=== PATIENT | male | born 1950 | race Caucasian/White ===

== ENCOUNTER 2020-06-21 15:51 | Outpatient (REF) | payer MEDICARE, SELFPAY | END 2020-06-21 15:52 | disposition home or self-care (01) | LOC: HO.LAB 15:51 | PROVIDERS: PCP Internal Medicine; Visit Provider Internal Medicine | DX: Z20.828 Contact with and (suspected) exposure to other viral communicable diseases (principal) | CPT/HCPCS: 87635 ==

== ENCOUNTER 2020-07-30 10:38 | Outpatient (REF) | payer MEDICARE, SELFPAY | END 2020-07-30 10:39 | disposition home or self-care (01) | LOC: HO.HMGCLDS 10:38 | PROVIDERS: PCP Internal Medicine; Visit Provider Internal Medicine | DX: Z20.828 Contact with and (suspected) exposure to other viral communicable diseases (principal) | CPT/HCPCS: C9803; U0003 ==

== ENCOUNTER 2020-08-02 09:51 | Outpatient (REF) | payer MEDICARE, SELFPAY ==
--- NOTE | 2020-08-02 | XR_ITS ---
EXAMINATION: XR CHEST CLINICAL INFORMATION: Covid infection COMPARISON: None TECHNIQUE: 2 views of the chest were obtained. FINDINGS: The cardiac and mediastinal contours are stable. There are 2 round densities in the right lung measuring 1.5 cm over the right anterior fourth rib and measuring 3.5 cm over the right anterior fifth and sixth ribs probably representing infiltrates. The left lung is clear. There is no pleural effusion or pneumothorax. There are degenerative changes of the spine. XR/XR chest 2V IMPRESSION: Two round nodular opacities in the right lung probably representing infiltrates. Chest x-ray follow-up recommended.
== END 2020-08-02 09:52 | disposition home or self-care (01) ==
LOC: HO.HMGCX 09:51
PROVIDERS: PCP Internal Medicine; Visit Provider Internal Medicine
DX: U07.1 COVID-19 (principal)
CPT/HCPCS: 71046

== ENCOUNTER 2020-08-09 09:20 | Outpatient (REF) | payer MEDICARE, SELFPAY ==
--- NOTE | 2020-08-09 | XR_ITS ---
EXAMINATION: XR CHEST CLINICAL INFORMATION: Pneumonia left lower lobe COMPARISON: 08/02/2020 TECHNIQUE: 2 views of the chest were obtained. FINDINGS: Stable cardiac and mediastinal silhouette. There is persistent, but slightly improved airspace opacities in the right midlung and right lower lung. No focal consolidation in the left lung. No effusion, edema pneumothorax. XR/XR chest 2V IMPRESSION: Airspace opacities in the right midlung and right lower lung, slightly improved from previous. Follow-up chest x-ray is recommended until resolution.
== END 2020-08-09 09:21 | disposition home or self-care (01) ==
LOC: HO.HMGCX 09:20
PROVIDERS: PCP Internal Medicine; Visit Provider Internal Medicine
DX: U07.1 COVID-19 (principal); J18.9 Pneumonia, unspecified organism
CPT/HCPCS: 71046

== ENCOUNTER 2020-08-30 09:08 | Outpatient (REF) | payer MEDICARE, SELFPAY ==
--- NOTE | 2020-08-30 | XR_ITS ---
EXAMINATION: XR CHEST CLINICAL INFORMATION: Covid positive COMPARISON: Previous chest x-rays from July 2020 TECHNIQUE: 2 views of the chest were obtained. FINDINGS: The cardiac and mediastinal contours are normal. The lungs are clear. The previously identified right-sided infiltrates are no longer seen. There is no pleural effusion or pneumothorax. There are degenerative changes of the spine. XR/XR chest 2V IMPRESSION: No evidence for acute disease in the chest.
== END 2020-08-30 09:09 | disposition home or self-care (01) ==
LOC: HO.HMGCX 09:08
PROVIDERS: PCP Internal Medicine; Visit Provider Internal Medicine
DX: U07.1 COVID-19 (principal)
CPT/HCPCS: 71046

== ENCOUNTER 2020-10-12 10:17 | Outpatient (REF) | payer MEDICARE, SELFPAY ==
[2020-10-12 11:04] LABS: Glucose Fasting 148 mg/dL (60-99)
[2020-10-12 11:15] LABS: Estimated Average Glucose 220 mg/dL; Hemoglobin A1c % 9.3 %
== END 2020-10-12 10:18 | disposition home or self-care (01) ==
LOC: HO.LNP 10:17
PROVIDERS: PCP Internal Medicine; Visit Provider Internal Medicine
DX: E11.9 Type 2 diabetes mellitus without complications (principal)
CPT/HCPCS: 82947; 83036

== ENCOUNTER 2021-01-17 15:16 | Outpatient (REF) | payer MEDICARE, SELFPAY ==
--- NOTE | ~2021-01-17 | XR_ITS ---
EXAMINATION: XR KNEE, LEFT CLINICAL INFORMATION: Pain COMPARISON: None TECHNIQUE: Four views of the left knee. FINDINGS: Bone alignment is normal. No fracture or dislocation is seen. Joint spaces are normal. There is a joint effusion. There is evidence of atherosclerotic disease. XR/XR knee LT 4V IMPRESSION: Joint effusion. No fracture or dislocation seen. Atherosclerotic disease.
== END 2021-01-17 15:17 | disposition home or self-care (01) ==
LOC: HO.HMGCX 15:16
PROVIDERS: PCP Internal Medicine; Visit Provider Nurse Practitioner Family
DX: M25.562 Pain in left knee (principal); M25.462 Effusion, left knee
CPT/HCPCS: 73564

== ENCOUNTER 2021-07-18 10:11 | Outpatient (REF) | payer MEDICARE, SELFPAY ==
[2021-07-18 10:16] LABS: MANUAL DIFF FLAG NO
[2021-07-18 10:40] LABS: Basophils Percent Auto 0.3 % (0-2); Eosinophils Absolute Auto 0.1 X10*3/uL (0.0-0.4); Eosinophils Percent Auto 1.5 % (0-4); Hematocrit 44.4 % (42.0-52.0); Hemoglobin 14.6 g/dl (14.0-18.0); Imm Gran Abs Auto 0.07 X10*3/uL (0.00-0.03); Imm Gran Pct Auto 0.8 % (0.0-0.4); Lymphocytes Absolute Auto 2.8 X10*3/uL (1.2-4.9); Lymphocytes Percent Auto 30.5 % (20-40); Mean Corpuscular HGB Conc 32.9 g/dl (31.0-36.0); Mean Corpuscular Hemoglobin 29.9 pg (27.0-33.0); Mean Platelet Volume 9.5 fL (9.4-12.4); Monocytes Absolute Auto 0.7 X10*3/uL (0.1-1.2); Neutrophils Absolute Auto 5.4 x10*3/uL (2.0-8.3); Neutrophils Percent Auto 58.9 % (45-73); Platelet Count 277 X10*3/uL (160-400); Red Blood Count 4.88 X10*6/uL (4.60-5.80); Red Cell Distribution Width 13.4 % (11.0-16.0); White Blood Count 9.2 X10*3/uL (4.8-10.8)
[2021-07-18 10:53] LABS: Appearance Urine CLEAR; Color Urine YELLOW; Glucose Urine UA NEG (NEG); Leukocyte Esterase Urine NEG (NEG); Nitrite Urine NEG (NEG); Specific Gravity - Urine 1.025 (1.005-1.025); Urine Blood NEG (NEG); Urine Ketones NEG (NEG); Urine Protein NEG (NEG-TRACE)
[2021-07-18 11:03] LABS: Estimated Average Glucose 154 mg/dL
[2021-07-18 11:11] LABS: Alanine Aminotransferase 25 U/L (0-40); Albumin Level 4.3 g/dL (3.5-5.0); Alkaline Phosphatase 45 U/L (39-117); Anion Gap 15 (12-20); Aspartate Amino Transferase 18 U/L (5-37); Bilirubin Total 0.6 mg/dL (0.0-1.0); Blood Urea Nitrogen 16 mg/dL (9-16); Calcium 9.4 mg/dL (8.4-10.2); Carbon Dioxide 28 mmol/L (22-29); Chloride 101 mmol/L (96-108); Cholesterol 126 mg/dL; Estimated Glomerular Filt Rate > 60; Glucose Fasting 117 mg/dL (60-99); HDL Cholesterol 37 mg/dL; LDL Cholesterol Calculated 71 mg/dl; Potassium 4.1 mmol/L (3.3-5.1); Sodium 140 mmol/L (135-145); Triglycerides 92 mg/dL
[2021-07-18 11:15] LABS: Creatinine Urine 111.26 mg/dL; Microalbum/Creatinine Ratio Ur 11.6 ug/mg cr
== END 2021-07-18 10:12 | disposition home or self-care (01) ==
LOC: HO.LNP 10:11
PROVIDERS: Visit Provider Internal Medicine
DX: E78.00 Pure hypercholesterolemia, unspecified (principal); E11.9 Type 2 diabetes mellitus without complications; E78.6 Lipoprotein deficiency; R97.20 Elevated prostate specific antigen [PSA]
CPT/HCPCS: 80053; 80061; 81003; 82043; 83036; 84153; 85025

== ENCOUNTER 2021-11-21 12:15 | Outpatient (REF) | payer MEDICARE, SELFPAY ==
[2021-11-21 14:41] LABS: PSA,Total (Free>4and<10) 4.01 ng/mL (0.00-4.00)
[2021-11-22 12:26] LABS: Free Prostate Spec Ag 1.2 ng/mL; Percent Free Prostate Spec Ag 32 % (calc) (>25); Prostate Specific Ag Total 3.8 ng/mL (< OR = 4.0)
== END 2021-11-21 12:16 | disposition home or self-care (01) ==
LOC: HO.HMGCLDS 12:15
PROVIDERS: PCP Internal Medicine; Visit Provider Physician Assistant Surgical
DX: Z12.5 Encounter for screening for malignant neoplasm of prostate (principal); R97.20 Elevated prostate specific antigen [PSA]
CPT/HCPCS: 36415; 84153; 84154

== ENCOUNTER → 2022-01-02 07:58 | Outpatient (REF) | payer MEDICARE, SELFPAY ==
--- NOTE | 2022-01-02 08:02 | CA_ITS ---
Acquisition Time: 2022-01-02 08:24:36 Total Exercise Time: 00:06:08 Test Indications: CP Medications: SEE CHART Protocol: MERLYN Max HR: 134 BPM 90% of Pred: 148 BPM Max BP: 160/078 mmHG Max Work Load: 7.1 METS Exercise stress test with exercise 6 min 8 sec of Merlyn protocol, with mild sob and leg fatigue, no chest discomfort, with isolated PACs and PVCs, with few atrial cuplets in early recovery, with normotensive response to exercise, without EKG changes meeting criteria for ischemia with exercise, in recovery there is slight downslope of ST inferiorly, without depression which is nonspecific. If further eval for ischemia is needed, then recommend an exercise nuclear stress test. Test reviewed with Dr West Referred By: Eladio Cherry Overread By: JENNIFER GONCALVES
== END ==
LOC: HO.CARD 07:58
PROVIDERS: PCP Internal Medicine; Visit Provider Internal Medicine
DX: R07.9 Chest pain, unspecified (principal)
CPT/HCPCS: 93017

== ENCOUNTER 2022-01-11 06:22 | Day surgery (SDC) | payer MEDICARE, SELFPAY ==
--- NOTE | 2022-01-10 10:24 | P.CONAN_ITS ---
Documented by User: Elysia Esteves NP 01/10/22 10:26 HPI - Anesthesia Eval Consult details Narrative: 71yo M for Upper Endoscopy and Colonoscopy PMF Active Problems Active Problems: All Active Problems (Updated 01/06/22 @ 12:58 by Rebecca Tomlinson RN) Knee pain, left (Acute) Knee swelling (Acute) Joint effusion of knee (Acute) Past Medical History Medical History BPH (benign prostatic hyperplasia) DM type 2 (diabetes mellitus, type 2) GERD (gastroesophageal reflux disease) HTN (hypertension) Hyperlipidemia Surgical History Surgical History History of local excision of skin lesion Hx of colonoscopy Social History Social History Patient Tobacco Use Status: Never used Tobacco Use of substances other than those prescribed or required for medical reasons: No Are you DNR?: No Advance Directives: No Advance Directives Information Provided: Yes Meds Allergies Allergy/AdvReac Type Severity Reaction Status Date / Time ibuprofen [From Motrin] Allergy Unknown Verified 01/06/22 12:58 Home Medications Medication Instructions Recorded Confirmed Last Taken Type atenolol 25 mg tablet 25 mg PO DAILY 01/17/21 01/06/22 Unknown History atorvastatin 40 mg tablet 40 mg PO BEDTIME 01/17/21 01/06/22 Unknown History metformin 1,000 mg tablet 1,000 mg PO BID 01/17/21 01/06/22 Unknown History pantoprazole 40 mg tablet,delayed 40 mg PO DAILY 01/17/21 01/11/22 01/11/22 06:00 History release triamterene 37.5 1 tab PO DAILY 01/17/21 01/06/22 Unknown History mg-hydrochlorothiazide 25 mg tablet sitagliptin 50 mg tablet (Januvia) 1 tab PO DAILY 01/06/22 01/06/22 Unknown History tamsulosin 0.4 mg capsule 1 cap PO BEDTIME 01/06/22 01/06/22 Unknown History Exam Exam Date and Time: January 10, 2022 1024 Pertinent Lab Results Pertinent Lab Results: Laboratory Tests 07/18/21 07/18/21 07:30 07:30 WBC 9.2 Hgb 14.6 Hct 44.4 Plt Count 277 Sodium 140 Potassium 4.1 Chloride 101 Carbon Dioxide 28 BUN 16 Creatinine 1.04 Assessment and Plan Assessment Anesthesia Assessment: Chart Reviewed Documented by User: Ana Mckeon MD 01/11/22 07:28 PMFSH Active Problems Active Problems: All Active Problems (Updated 01/06/22 @ 12:58 by Rebecca Tomlinson, REYNA) Knee pain, left (Acute) Knee swelling (Acute) Joint effusion of knee (Acute) Snores but never tested for CHANTAL Past Medical History Medical History BPH (benign prostatic hyperplasia) DM type 2 (diabetes mellitus, type 2) GERD (gastroesophageal reflux disease) HTN (hypertension) Hyperlipidemia Family History Family history of problems with anesthesia: No Surgical History Surgical History History of local excision of skin lesion Hx of colonoscopy History of Problems with Anesthesia: No Social History Social History Patient Tobacco Use Status: Never used Tobacco Use of substances other than those prescribed or required for medical reasons: No Are you DNR?: No Advance Directives: No Advance Directives Information Provided: Yes Meds Allergies Allergy/AdvReac Type Severity Reaction Status Date / Time ibuprofen [From Motrin] Allergy Unknown Verified 01/06/22 12:58 Home Medications Medication Instructions Recorded Confirmed Last Taken Type atenolol 25 mg tablet 25 mg PO DAILY 01/17/21 01/06/22 Unknown History atorvastatin 40 mg tablet 40 mg PO BEDTIME 01/17/21 01/06/22 Unknown History metformin 1,000 mg tablet 1,000 mg PO BID 01/17/21 01/06/22 Unknown History pantoprazole 40 mg tablet,delayed 40 mg PO DAILY 01/17/21 01/11/22 01/11/22 06:00 History release triamterene 37.5 1 tab PO DAILY 01/17/21 01/06/22 Unknown History mg-hydrochlorothiazide 25 mg tablet sitagliptin 50 mg tablet (Januvia) 1 tab PO DAILY 01/06/22 01/06/22 Unknown His tory tamsulosin 0.4 mg capsule 1 cap PO BEDTIME 01/06/22 01/06/22 Unknown History Exam Height,Weight and Vital Signs: Height 5 ft 11 in Weight 85.275 kg Vital Signs Temp Pulse Resp BP Pulse Ox 01/11/22 06:54 97.2 F 64 16 158/85 H 99 Pertinent Lab Results Pertinent Lab Results: Laboratory Tests 07/18/21 07/18/21 07:30 07:30 WBC 9.2 Hgb 14.6 Hct 44.4 Plt Count 277 Sodium 140 Potassium 4.1 Chloride 101 Carbon Dioxide 28 BUN 16 Creatinine 1.04 Lab Results 01/11/22 Range/Units 06:54 POC Glucose 135 H (60-115) mg/dL Airway Mallampati Class: II TM Dist: >3cm Neck ROM: Full Loose/Missing/Broken Teeth: Yes (Some missing) Heart: RRR Lungs: CTAB Assessment and Plan Assessment Anesthesia Assessment: Anesthesia Plan Discussed Final Anesthetic Review Family History of Problems with Anesthesia: No History of Problems with Anesthesia: No NPO: Yes ASA Class: II Final Preanesthetic Review: No Changes in Pt Med Stat, Meds/Allgs Chart Reviewed, Consent Obtained/Reviewed and Anes Risks/Benef Reviewed Patient Risk: Low Procedure Risk: Low Assessment/Block/Sedation in SS: Assess/Block/Sedation-SS Anesthetic Plan Anesthetic Plan: MAC: Disposition: Standard PACU
[2022-01-11 06:54] VITALS: BP 158/85; PULSE 64; RESP 16; TEMP 36.2; O2SAT 99; BMI 26.2
[2022-01-11 06:57] LABS: Glucose, Whole Blood 135 mg/dL (60-115)
[2022-01-11] MEDS: Lactated Ringers 1,000 ML 100 ML IVCONT (07:03)
[2022-01-11 08:45] VITALS: BP 95/54; PULSE 61; RESP 16; TEMP 36.4; O2SAT 97
--- NOTE | 2022-01-11 08:46 | P.BOP_ITS ---
Brief Operative Note Date of Service: 01/11/22 Pre-op diagnosis: GERD, Screening Post-op diagnosis: other (Hiatal hernia, Gastric polyps, Colon polyps) Procedure: EGD with biopsies, Colonoscopy to the cecum and TI with cold snare polypectomy x 3, and bx/removal of polyp Surgeon: Papi Thompson Anesthesia: MAC Was an Curriculum Coordinator used for this Procedure?: No Estimated blood loss (mL): 2.0 Pathology: other (A. Gastric polyps B. EG Junction at 38cm C. Ascending colon polyp D. Polyp at 40cm E. Polyp at 20cm) Condition: stable Disposition: PACU
[2022-01-11 09:00] VITALS: BP 115/69; PULSE 64; RESP 16; TEMP 36.6; O2SAT 97
--- NOTE | 2022-01-11 19:59 | OP_ITS ---
SURGEON: Papi Thompson MD INDICATIONS: The patient presents for evaluation of gastroesophageal reflux, personal history of tubular adenoma of the colon, and colorectal cancer screening. Full consent has been obtained from him for both procedures, including risks of bleeding and perforation. PREOPERATIVE DIAGNOSIS: POSTOPERATIVE DIAGNOSIS: PROCEDURE PERFORMED: Esophagogastroduodenoscopy with biopsies, and colonoscopy to the cecum and terminal ileum with cold snare polypectomy and biopsy with removal of polyp. ESTIMATED BLOOD LOSS: COMPLICATIONS: ANESTHESIA: Monitored anesthesia care. ASSISTANTS: SPECIMENS: PREOPERATIVE DIAGNOSES: Gastroesophageal reflux, colorectal cancer screening, personal history of tubular adenomas. POSTOPERATIVE DIAGNOSES: Gastroesophageal reflux, colorectal cancer screening, personal history of tubular adenomas, hiatal hernia, gastric polyps, colon polyps, diverticulosis and internal hemorrhoids. DESCRIPTION OF PROCEDURE: The patient was placed in the left lateral decubitus position. The Olympus video gastroscope was passed in the posterior oropharynx and upper esophagus under direct vision. The scope was passed slowly to the distal esophagus. The gastroesophageal junction appeared at 38 cm. There was some minimal irregularity, but no evidence of esophagitis nor any definitive evidence of Goldsmith's mucosa. The scope entered into the stomach. There was a small hiatal hernia. The scope was advanced to the pylorus and the duodenum was cannulated to the descending portion. The duodenum including the bulb appeared normal without mass or ulceration. The scope was withdrawn back into the stomach. The gastric antrum and body appeared normal with good peristalsis. The scope was retroflexed visualizing the proximal stomach carefully, which appeared normal, without mass or ulceration, other than some hyperplastic appearing gastric polyps. These were biopsied in the forward viewing position. The scope was withdrawn back in the esophagus. Biopsies were obtained at the EG junction at 38 cm. Proximal to that the esophageal mucosa appeared normal. The scope was withdrawn from the patient. He was turned around for the colonoscopy. The digital rectal exam revealed no abnormalities. The Olympus video pediatric colonoscope was entered into the rectum and advanced easily to the cecum. Once in the cecum, I did identify normal-appearing cecal pouch with appendiceal orifice and a normal-appearing ileocecal valve. The terminal ileum was cannulated and appeared normal. The scope was withdrawn back from the colon. The entire cecum and ileocecal valve appeared normal. The scope was slowly withdrawn assessing all mucosal surfaces carefully. Preparation was excellent. In the ascending colon were 2 approximately 5 or 6 mm polyps, which were both snared and completely removed with cold snare polypectomy. Only 1 was recovered. Both polypectomy sites appeared clean, without any sign of residual polyp nor any significant bleeding. At 40 cm was a 5 or 6 mm polyp, which was removed by cold snare polypectomy and recovered by suction. The polypectomy site appeared clean, without any sign of residual polyp nor significant bleeding. At 20 cm was an approximately 3 or 4 mm polyp, which was biopsied and completely removed with cold biopsy forceps. I did not visualize any other polyps, colitis, or angiodysplasia. There was a mild amount of sigmoid diverticulosis. In the rectum, scope was retroflexed visualizing internal hemorrhoids, but no other pathology. The rectal mucosa appeared normal. Scope was straightened and withdrawn from the patient. He tolerated both procedures well and was returned to the recovery area in stable condition. IMPRESSION: 1. Small hiatal hernia, gastroesophageal reflux. 2. Gastric polyps. 3. Colon polyps. 4. Diverticulosis. 5. Internal hemorrhoids. PLAN: Results of biopsies will be checked. I would recommend a repeat colonoscopy in 5 years for further surveillance. He will continue his pantoprazole for symptomatic relief of reflux. He was advised not to use any aspirin and NSAIDs for 1 week. He will otherwise see me on a p.r.n. basis. MD DAMIEN Monteiro/GREGORIA / [phone] MTDD
== END 2022-01-11 09:41 | disposition home or self-care (01) ==
PROVIDERS: PCP Internal Medicine; Visit Provider Internal Medicine
PROC: (CPT 45385; principal; 2022-01-11 07:30)
DX: Z12.11 Encounter for screening for malignant neoplasm of colon (principal); Z86.010 Personal history of colon polyps; D12.2 Benign neoplasm of ascending colon; D12.5 Benign neoplasm of sigmoid colon; K57.30 Diverticulosis of large intestine without perforation or abscess without bleeding; K64.8 Other hemorrhoids; K21.9 Gastro-esophageal reflux disease without esophagitis; K31.7 Polyp of stomach and duodenum; K44.9 Diaphragmatic hernia without obstruction or gangrene; N40.0 Benign prostatic hyperplasia without lower urinary tract symptoms; I10 Essential (primary) hypertension; E78.5 Hyperlipidemia, unspecified; E11.9 Type 2 diabetes mellitus without complications; Z79.84 Long term (current) use of oral hypoglycemic drugs; Z79.899 Other long term (current) drug therapy
CPT/HCPCS: 45385; 45380; 43239; 82947; 88305; 88342; J2250

== ENCOUNTER 2022-01-24 10:23 | Outpatient (REF) | payer MEDICARE, SELFPAY ==
[2022-01-24 10:43] LABS: Alanine Aminotransferase 37 U/L (0-40); Albumin Level 4.3 g/dL (3.5-5.0); Alkaline Phosphatase 55 U/L (39-117); Aspartate Amino Transferase 24 U/L (5-37); Bilirubin Direct 0.3 mg/dL (0.0-0.5); Bilirubin Total 0.9 mg/dL (0.0-1.0); Cholesterol 131 mg/dL; Glucose Fasting 126 mg/dL (60-99); HDL Cholesterol 31 mg/dL; LDL Cholesterol Calculated 62 mg/dl; Total Protein 7.2 g/dL (6.5-8.0); Triglycerides 190 mg/dL
[2022-01-24 10:52] LABS: Estimated Average Glucose 154 mg/dL
== END 2022-01-24 10:24 | disposition home or self-care (01) ==
LOC: HO.LNP 10:23
PROVIDERS: Visit Provider Internal Medicine
DX: E11.9 Type 2 diabetes mellitus without complications (principal); E78.00 Pure hypercholesterolemia, unspecified
CPT/HCPCS: 80061; 80076; 82947; 83036

== ENCOUNTER 2022-07-27 10:15 | Outpatient (REF) | payer MEDICARE, SELFPAY ==
[2022-07-27 10:20] LABS: MANUAL DIFF FLAG NO
[2022-07-27 10:48] LABS: Appearance Urine Clear; Color Urine Yellow; Glucose Urine UA Negative (Negative); Leukocyte Esterase Urine Negative (Negative); Nitrite Urine Negative (Negative); Urine Blood Negative (Negative); Urine Ketones Negative (Negative); Urine Protein Negative (Neg-Trace)
[2022-07-27 10:54] LABS: Bacteria Urine None Seen (None Seen); Hyaline Casts Urine 0-2 /LPF (0-2); RBC Urine 0-2 /HPF (0-2); Squamous Epithelial Cell Urine 0-2 /HPF (0-2); WBC Urine 0-5 /HPF (0-5)
[2022-07-27 11:00] LABS: Basophils Absolute Auto 0.1 X10*3/uL (0.0-0.2); Basophils Percent Auto 0.8 % (0-2); Eosinophils Absolute Auto 0.2 X10*3/uL (0.0-0.4); Eosinophils Percent Auto 3.3 % (0-4); Hemoglobin 15.1 g/dl (14.0-18.0); Imm Gran Abs Auto 0.06 X10*3/uL (0.00-0.03); Imm Gran Pct Auto 0.8 % (0.0-0.4); Lymphocytes Absolute Auto 2.6 X10*3/uL (1.2-4.9); Lymphocytes Percent Auto 36.5 % (20-40); Mean Corpuscular HGB Conc 33.6 g/dl (31.0-36.0); Mean Corpuscular Hemoglobin 30.4 pg (27.0-33.0); Mean Corpuscular Volume 90.7 fL (80.0-98.0); Mean Platelet Volume 9.7 fL (9.4-12.4); Monocytes Absolute Auto 0.7 X10*3/uL (0.1-1.2); Monocytes Percent Auto 9.9 % (2-11); Neutrophils Absolute Auto 3.5 x10*3/uL (2.0-8.3); Neutrophils Percent Auto 48.7 % (45-73); Platelet Count 246 X10*3/uL (160-400); Red Blood Count 4.96 X10*6/uL (4.60-5.80); Red Cell Distribution Width 13.1 % (11.0-16.0); White Blood Count 7.2 X10*3/uL (4.8-10.8)
[2022-07-27 11:32] LABS: Alanine Aminotransferase 32 U/L (0-40); Albumin Level 4.5 g/dL (3.5-5.0); Alkaline Phosphatase 51 U/L (39-117); Anion Gap 10 (12-20); Aspartate Amino Transferase 21 U/L (5-37); Blood Urea Nitrogen 18 mg/dL (9-16); Calcium 9.8 mg/dL (8.4-10.2); Carbon Dioxide 31 mmol/L (22-29); Chloride 97 mmol/L (96-108); Cholesterol 142 mg/dL; Creatinine Urine 60.33 mg/dL; Estimated Glomerular Filt Rate > 60; Glucose Fasting 149 mg/dL (60-99); HDL Cholesterol 29 mg/dL; LDL Cholesterol Calculated 56 mg/dl; Microalbumin Urine < 5.0 mg/L; Sodium 134 mmol/L (135-145); Total Protein 7.1 g/dL (6.5-8.0); Triglycerides 285 mg/dL
[2022-07-27 11:34] LABS: Estimated Average Glucose 177 mg/dL; Hemoglobin A1c % 7.8 %
[2022-07-31 10:44] LABS: Free Prostate Spec Ag 1.8 ng/mL; Percent Free Prostate Spec Ag 29 % (calc) (>25); Prostate Specific Ag Total 6.2 ng/mL (< OR = 4.0)
== END 2022-07-27 10:16 | disposition home or self-care (01) ==
LOC: HO.LNP 10:15
PROVIDERS: Visit Provider Internal Medicine
DX: Z12.5 Encounter for screening for malignant neoplasm of prostate (principal); E11.9 Type 2 diabetes mellitus without complications; E78.00 Pure hypercholesterolemia, unspecified
CPT/HCPCS: 80053; 80061; 81001; 82043; 83036; 84153; 84154; 85025

== ENCOUNTER 2022-11-06 14:45 | Outpatient (REF) | payer MEDICARE, SELFPAY ==
--- NOTE | ~2022-11-06 | XR_ITS ---
EXAMINATION: XR CHEST CLINICAL INFORMATION: Cough COMPARISON: August 2020 TECHNIQUE: 2 views of the chest were obtained. FINDINGS: No significant abnormality is noted involving the heart, lungs, mediastinum, bony thorax or soft tissues. XR/XR chest 2V IMPRESSION: Unremarkable examination, without interval change.
== END 2022-11-06 14:46 | disposition home or self-care (01) ==
LOC: HO.HMGCX 14:45
PROVIDERS: PCP Internal Medicine; Visit Provider Internal Medicine
DX: R05.9 Cough, unspecified (principal)
CPT/HCPCS: 71046

== ENCOUNTER 2023-01-25 11:05 | Outpatient (REF) | payer MEDICARE, SELFPAY ==
[2023-01-25 11:42] LABS: Estimated Average Glucose 143 mg/dL; Hemoglobin A1c % 6.6 %
[2023-01-25 12:06] LABS: Alanine Aminotransferase 24 U/L (0-40); Albumin Level 4.3 g/dL (3.5-5.0); Alkaline Phosphatase 56 U/L (39-117); Aspartate Amino Transferase 23 U/L (5-37); Bilirubin Direct 0.3 mg/dL (0.0-0.5); Cholesterol 114 mg/dL; HDL Cholesterol 28 mg/dL; LDL Cholesterol Calculated 59 mg/dl; Triglycerides 135 mg/dL
[2023-01-25 13:42] LABS: Reflex LDLD? No
== END 2023-01-25 11:06 | disposition home or self-care (01) ==
LOC: HO.LNP 11:05
PROVIDERS: Visit Provider Internal Medicine
DX: E78.00 Pure hypercholesterolemia, unspecified (principal); E11.9 Type 2 diabetes mellitus without complications
CPT/HCPCS: 80061; 80076; 83036

== ENCOUNTER 2023-02-01 16:11 | Outpatient (REF) | payer MEDICARE, SELFPAY ==
[2023-02-01 18:12] LABS: Creatinine Urine 114.67 mg/dL; Microalbum/Creatinine Ratio Ur 17.4 ug/mg cr
== END 2023-02-01 16:12 | disposition home or self-care (01) ==
LOC: HO.LNP 16:11
PROVIDERS: Visit Provider Internal Medicine
DX: E11.9 Type 2 diabetes mellitus without complications (principal)
CPT/HCPCS: 82043

== ENCOUNTER 2023-07-31 10:26 | Outpatient (REF) | payer MEDICARE, SELFPAY ==
[2023-07-31 10:31] LABS: MANUAL DIFF FLAG NO
[2023-07-31 11:18] LABS: Appearance Urine Clear; Color Urine Yellow; Glucose Urine UA Negative (Negative); Leukocyte Esterase Urine Negative (Negative); Nitrite Urine Negative (Negative); PH 6.5 (5.0-9.0); Urine Blood Negative (Negative); Urine Ketones Negative (Negative); Urine Protein Negative (Neg-Trace)
[2023-07-31 11:25] LABS: Bacteria Urine None Seen (None Seen); Hyaline Casts Urine 0-2 /LPF (0-2); RBC Urine 0-2 /HPF (0-2); Squamous Epithelial Cell Urine 0-2 /HPF (0-2); WBC Urine 0-5 /HPF (0-5)
[2023-07-31 11:52] LABS: Basophils Absolute Auto 0.1 X10*3/uL (0.0-0.2); Basophils Percent Auto 0.6 % (0-2); Eosinophils Absolute Auto 0.2 X10*3/uL (0.0-0.4); Eosinophils Percent Auto 2.5 % (0-4); Hematocrit 45.1 % (42.0-52.0); Hemoglobin 14.6 g/dl (14.0-18.0); Imm Gran Pct Auto 1.3 % (0.0-0.4); Lymphocytes Absolute Auto 2.4 X10*3/uL (1.2-4.9); Mean Corpuscular HGB Conc 32.4 g/dl (31.0-36.0); Mean Corpuscular Hemoglobin 30.2 pg (27.0-33.0); Mean Corpuscular Volume 93.2 fL (80.0-98.0); Mean Platelet Volume 9.5 fL (9.4-12.4); Monocytes Absolute Auto 0.7 X10*3/uL (0.1-1.2); Monocytes Percent Auto 8.8 % (2-11); Neutrophils Absolute Auto 4.5 x10*3/uL (2.0-8.3); Neutrophils Percent Auto 56.8 % (45-73); Platelet Count 262 X10*3/uL (160-400); Red Blood Count 4.84 X10*6/uL (4.60-5.80); Red Cell Distribution Width 13.2 % (11.0-16.0); White Blood Count 7.9 X10*3/uL (4.8-10.8)
[2023-07-31 12:18] LABS: Estimated Average Glucose 148 mg/dL; Hemoglobin A1c % 6.8 % (<6.0)
[2023-07-31 13:14] LABS: Alanine Aminotransferase 28 U/L (0-40); Albumin Level 4.3 g/dL (3.5-5.0); Alkaline Phosphatase 53 U/L (39-117); Anion Gap 13 (12-20); Aspartate Amino Transferase 22 U/L (5-37); Bilirubin Total 0.7 mg/dL (0.0-1.0); Blood Urea Nitrogen 21 mg/dL (9-16); Calcium 9.8 mg/dL (8.4-10.2); Carbon Dioxide 29 mmol/L (22-29); Chloride 101 mmol/L (96-108); Cholesterol 147 mg/dL (<200); Estimated Glomerular Filt Rate > 60; Glucose Fasting 131 mg/dL (60-99); HDL Cholesterol 32 mg/dL (>40); LDL Cholesterol Calculated 59 mg/dL (<100); Potassium 3.8 mmol/L (3.3-5.1); Sodium 139 mmol/L (135-145); Total Protein 7.4 g/dL (6.5-8.0); Triglycerides 282 mg/dL (<150)
[2023-07-31 14:34] LABS: Creatinine Urine 109.01 mg/dL; Microalbum/Creatinine Ratio Ur 8.2 ug/mg cr (<30)
== END 2023-07-31 10:27 | disposition home or self-care (01) ==
LOC: HO.LNP 10:26
PROVIDERS: Visit Provider Internal Medicine
DX: E11.9 Type 2 diabetes mellitus without complications (principal); E78.00 Pure hypercholesterolemia, unspecified; Z12.5 Encounter for screening for malignant neoplasm of prostate
CPT/HCPCS: 80053; 80061; 81001; 82043; 82570; 83036; 84153; 85025

== ENCOUNTER 2024-01-31 10:55 | Outpatient (REF) | payer MEDICARE, SELFPAY ==
[2024-01-31 11:59] LABS: Alanine Aminotransferase 30 U/L (0-40); Albumin Level 4.4 g/dL (3.5-5.0); Alkaline Phosphatase 63 U/L (39-117); Aspartate Amino Transferase 21 U/L (5-37); Bilirubin Direct 0.2 mg/dL (0.0-0.5); Bilirubin Total 0.5 mg/dL (0.0-1.0); Cholesterol 134 mg/dL (<200); Estimated Average Glucose 169 mg/dL; Glucose Fasting 151 mg/dL (60-99); HDL Cholesterol 29 mg/dL (>40); Hemoglobin A1c % 7.5 % (<6.0); LDL Cholesterol Calculated 49 mg/dL (<100); Total Protein 7.4 g/dL (6.5-8.0); Triglycerides 280 mg/dL (<150)
[2024-01-31 12:33] LABS: Reflex LDLD? No
== END 2024-01-31 10:56 | disposition home or self-care (01) ==
LOC: HO.LNP 10:55
PROVIDERS: Visit Provider Internal Medicine
DX: E11.9 Type 2 diabetes mellitus without complications (principal); E78.00 Pure hypercholesterolemia, unspecified
CPT/HCPCS: 80061; 80076; 82947; 83036

== ENCOUNTER 2024-07-04 15:09 | Outpatient (REF) | payer MEDICARE, SELFPAY ==
--- NOTE | ~2024-07-04 | XR_ITS ---
EXAMINATION: XR LUMBOSACRAL SPINE CLINICAL INFORMATION: Low back pain, unspecified COMPARISON: None available. TECHNIQUE: AP and lateral views of the lumbar spine and lateral view of the lumbosacral junction. FINDINGS: Grade 1 anterolisthesis of L4 on L5. Moderate degenerative disc disease at L5-S1 with loss of intervertebral disc space and vacuum disc phenomenon. Otherwise, intervertebral disc spaces are relatively well-maintained. Multilevel lower lumbar spine facet arthropathy. Vertebral body heights are maintained. Imaged portions of the sacroiliac joints are normal. Paraspinal soft tissues are normal. Bilateral pelvic phleboliths. Aortic calcifications noted. XR/XR lumbar spine 2-3V IMPRESSION: 1. No acute fracture or joint subluxation of the lumbar spine. 2. Grade 1 anterolisthesis of L4 on L5. 3. Moderate degenerative disc disease at L5-S1. Electronically signed by: Marah Sorenson DO 07/04/2024 06:11 PM [facility]
== END 2024-07-04 15:10 | disposition home or self-care (01) ==
LOC: HO.HMGCX 15:09
PROVIDERS: PCP Internal Medicine; Visit Provider Physician Assistant Medical
DX: M54.50 Low back pain, unspecified (principal); M62.830 Muscle spasm of back
CPT/HCPCS: 72100; 99212

== ENCOUNTER → 2024-07-04 15:09 | Outpatient (AMB) | payer MEDICARE, SELFPAY ==
--- NOTE | 2024-07-04 15:12 | MHC.OFFWIV ---
Intake Vital Signs 07/04/24 15:13 Weight 198 lb BP 120/80 Blood Pressure Location Rt brachial Position Sitting Pulse 68 Pulse Source Pulse Oximeter Pulse Oximetry (%) 99 Oxygen Delivery Method Room Air Intake Visit Reasons: low back pain Intake Note: Patient here for lower back pain that has been present for about 2 weeks and pain can radiate across the back at times. Patient Tobacco Use Status: Never used Tobacco Allergies ibuprofen [From Motrin] Allergy (Verified 07/04/24 15:14) Unknown Do you need a note to return to daycare/school/sports/work: No HPI HPI Comments History of Present Illness Details This is a 74-year-old male who presented to the walk-in clinic complaining of low back pain (left greater than right) times approximately 2 weeks. He denies any known trauma/injury but states that he does some heavy lifting at work so it is possible that he injured his back. He denies any bowel/bladder retention/incontinence, numbness/weakness/paresthesias of his extremities, saddle anesthesias, or fever/chills. He denies any urinary symptoms such as urinary frequency, urinary urgency, hematuria, or dysuria. [facility] Medical History GERD (gastroesophageal reflux disease) DM type 2 (diabetes mellitus, type 2) BPH (benign prostatic hyperplasia) Hyperlipidemia HTN (hypertension) Surgical History History of local excision of skin lesion Hx of colonoscopy Social History Patient Tobacco Use Status: Never used Tobacco Review of Systems Const All systems reviewed & are unremarkable except as noted in HPI and below Reports no additional complaints Eyes Reports no additional complaints ENT Reports no additional complaints Card Reports no additional complaints Resp Reports no additional complaints GI Reports no additional complaints Reports no additional complaints Musc Reports no additional complaints Skin/Breast Reports system reviewed and no additional complaints, except as documented Neuro Reports no additional complaints Psych Reports no additional complaints Endo Reports no additional complaints Gareth/Lymph Reports no additional complaints Aller/Immun Reports no additional complaints Physical Exam Vital Signs: Last Vital Signs Pulse 68 07/04/24 15:13 BP 120/80 07/04/24 15:13 Pulse Ox 99 07/04/24 15:13 Oxygen Delivery Method Room Air 07/04/24 15:13 Const Other: Vital signs reviewed. Constitutional: Non-toxic appearing. No acute distress. Well-developed and well-nourished. HEENT: Normocephalic and atraumatic. Tympanic membranes without erythema, edema, or bulging bilaterally. External auditory canals without erythema or edema bilaterally. Moist mucous membranes. No pharyngeal erythema or exudates. Skin: Warm and dry. No rashes or lesions noted. Neck: Full and painless range of motion. No cervical lymphadenopathy. Cardio: Regular rate and rhythm. No murmurs, gallops, or rubs. No lower extremity edema. No JVD. Pulmonary: No respiratory distress. No accessory muscle usage. Clear to auscultation bilaterally without wheezing, crackles, or rhonchi. Gastrointestinal: Soft, nontender, and nondistended in all 4 quadrants. Normoactive bowel sounds in all 4 quadrants. Genitourinary: No CVA tenderness. Musculoskeletal: Mild tenderness to palpation of the left lumbar paraspinal musculature. There is no midline or spinous process tenderness to palpation. He has a negative straight leg raise test bilaterally. Neuro: Alert and oriented x4. Cranial nerves 2-12 grossly intact. No focal deficits appreciated. Psych: Normal mood and affect. Assessment & Plan Assessment & Plan (1) Lumbar paraspinal muscle spasm: Code(s): M62.830 - Muscle spasm of back Plan: This is a 74-year-old male who presented to the walk-in clinic complaining of mild low back pain (left greater than right). On physical examination, he is mild tenderness to palpation of the left lumbar paraspinal musculature without midline or spinous process tenderness to palpation. He has a negative straight leg raise bilaterally. He has no red flag symptoms. An x-ray of the lumbar spine was obtained, which showed some disc space narrowing especially at L5-S1 but was otherwise negative for acute bony abnormality. History and physical most consistent with left-sided lumbar paraspinal muscle sprain/strain versus spasm. I recommended supportive management including heat to the area, [id number] lidocaine patches, rest/activity modification, and acetaminophen as needed for pain. Patient was also given a prescription for PO cyclobenzaprine 5 mg 3 times daily as needed for muscle spasms. Patient was advised to follow-up here or proceed directly to the emergency room if he were to develop any red flag symptoms as detailed above. Patient verbalizes understanding and he is in agreement with the plan. Orders: Orders XR lumbar spine 2-3V Today M54.50 - Low back pain, unspecified Medications: New cyclobenzaprine 5 mg PO TID PRN 20 tabs 0RF muscle spasm Coding Level of Care Code Est Pt Level 3 (79103) Diagnoses Lumbar paraspinal muscle spasm M62.830
[2024-07-04 15:13] VITALS: BP 120/80; PULSE 68; O2SAT 99
== END ==
PROVIDERS: PCP Internal Medicine; Visit Provider Physician Assistant Medical
DX: M62.830 Muscle spasm of back (principal)

== ENCOUNTER 2024-08-28 11:29 | Outpatient (REF) | payer MEDICARE, SELFPAY ==
[2024-08-28 11:33] LABS: MANUAL DIFF FLAG NO
[2024-08-28 11:47] LABS: Basophils Absolute Auto 0.1 X10*3/uL (0.0-0.2); Basophils Percent Auto 0.8 % (0-2); Eosinophils Absolute Auto 0.3 X10*3/uL (0.0-0.4); Eosinophils Percent Auto 3.5 % (0-4); Hematocrit 43.5 % (42.0-52.0); Hemoglobin 14.3 g/dl (14.0-18.0); Imm Gran Abs Auto 0.07 X10*3/uL (0.00-0.03); Lymphocytes Absolute Auto 2.5 X10*3/uL (1.2-4.9); Mean Corpuscular HGB Conc 32.9 g/dl (31.0-36.0); Mean Corpuscular Hemoglobin 30.4 pg (27.0-33.0); Mean Corpuscular Volume 92.4 fL (80.0-98.0); Mean Platelet Volume 9.4 fL (9.4-12.4); Monocytes Absolute Auto 0.6 X10*3/uL (0.1-1.2); Monocytes Percent Auto 8.1 % (2-11); Neutrophils Absolute Auto 3.7 x10*3/uL (2.0-8.3); Neutrophils Percent Auto 51.6 % (45-73); Platelet Count 251 X10*3/uL (160-400); Red Blood Count 4.71 X10*6/uL (4.60-5.80); White Blood Count 7.1 X10*3/uL (4.8-10.8)
[2024-08-28 11:52] LABS: Appearance Urine Clear; Color Urine Yellow; Glucose Urine UA Negative (Negative); Leukocyte Esterase Urine Negative (Negative); Nitrite Urine Negative (Negative); Specific Gravity - Urine 1.025 (1.005-1.025); Urine Blood Negative (Negative); Urine Ketones Negative (Negative); Urine Protein Negative (Neg-Trace)
[2024-08-28 11:54] LABS: Estimated Average Glucose 157 mg/dL; Hemoglobin A1C 198.1457 umol/L; Hemoglobin A1c % 7.1 % (<6.0); Total Hemoglobin (HGBA1C) 3686.8969 umol/L
[2024-08-28 12:11] LABS: Creatinine Urine 132.92 mg/dL; Microalbum/Creatinine Ratio Ur 9.7 ug/mg cr (<30)
[2024-08-28 12:18] LABS: PSA,Total (Free>4and<10) 1.39 ng/mL (0.00-4.00)
[2024-08-28 12:20] LABS: Alanine Aminotransferase 50 U/L (0-40); Albumin Level 4.2 g/dL (3.5-5.0); Alkaline Phosphatase 57 U/L (39-117); Anion Gap 13 (12-20); Aspartate Amino Transferase 31 U/L (5-37); Bilirubin Total 0.5 mg/dL (0.0-1.0); Blood Urea Nitrogen 23 mg/dL (9-16); Calcium 8.9 mg/dL (8.4-10.2); Carbon Dioxide 28 mmol/L (22-29); Chloride 103 mmol/L (96-108); Cholesterol 131 mg/dL (<200); Estimated Glomerular Filt Rate > 60; Glucose Fasting 141 mg/dL (60-99); HDL Cholesterol 30 mg/dL (>40); LDL Cholesterol Calculated 40 mg/dL (<100); Sodium 140 mmol/L (135-145); Total Protein 7.2 g/dL (6.5-8.0); Triglycerides 305 mg/dL (<150)
--- OUTSIDE RECORDS SUMMARY | 2024-08-28 12:39 | XMS_ITS ---
Author Organization Eladio Cherry MD Address [address] [place] [phone] Care Team Providers Care Gas Brazer Name Role Phone Eladio Cherry Primary Care Provider RESULTS Component Value Reference Range Notes Complete Blood Count Auto Di ff (Not yet reviewed by provider) Interpretation: Performing Lab:[facility], [address] [place] [phone] Notes/Report: White Blood Count 7.1 4.8-10.8 X10*3/uL Red Blood Count 4.71 4.60-5.80 X10*6/uL Hemoglobin 14.3 14.0-18.0 g/dl Hematocrit 43.5 42.0-52.0 % Mean Corpuscular Volume 92.4 80.0-98.0 fL Mean Corpuscular Hemoglobin 30.4 27.0-33.0 pg Mean Corpuscular HGB Conc 32.9 31.0-36.0 g/dl Red Cell Distribution Width 13.0 11.0-16.0 % Platelet Count 251 160-400 X10*3/uL Mean Platelet Volume 9.4 9.4-12.4 fL Neutrophils Percent Auto 51.6 45-73 % Imm Gran Pct Auto 1.0 0.0-0.4 % Lymphocytes Percent Auto 35.0 20-40 % Monocytes Percent Auto 8.1 2-11 % Eosinophils Percent Auto 3.5 0-4 % Basophils Percent Auto 0.8 0-2 % NRBC Pct Auto 0.0 0.0-0.2 /100WBC Neutrophils Absolute Auto 3.7 2.0-8.3 x10*3/u L Imm Gran Abs Auto 0.07 0.00-0.03 X10*3/uL Lymphocytes Absolute Auto 2.5 1.2-4.9 X10*3/u L Monocytes Absolute Auto 0.6 0.1-1.2 X10*3/uL Eosinophils Absolute Auto 0.3 0.0-0.4 X10*3/u L Basophils Absolute Auto 0.1 0.0-0.2 X10*3/uL NRBC Abs Auto 0.000 0.0-0.012 X10*3/uL Comprehensive Pingree. Panel Fa st (Not yet reviewed by provider) Interpretation: Performing Lab:[facility], [address] [place] [phone] Notes/Report: Sodium 140 135-145 mmol/L Potassium 4.0 3.3-5.1 mmol/L Chloride 103 96-108 mmol/L Carbon Dioxide 28 22-29 mmol/L Anion Gap 13 12-20 Blood Urea Nitrogen 23 9-16 mg/dL Creatinine 1.14 0.5-1.4 mg/dL Estimated Glomerular Filt Rate > 60 Chronic Kidney Disease: Estimated GFR < 60 mL/min/1.73m2 Severe Kidney Disease: Estimated GFR < 15 mL/min/1.73m2 Glucose Fasting 141 60-99 mg/dL A fasting glucose of 126 mg/dl or greater on more than one occasion is considered diagnostic of diabetes. Calcium 8.9 8.4-10.2 mg/dL Bilirubin Total 0.5 0.0-1.0 mg/dL Aspartate Amino Transferase 31 5-37 U/L Alanine Aminotransferase 50 0-40 U/L Total Protein 7.2 6.5-8.0 g/dL Albumin Level 4.2 3.5-5.0 g/dL Alkaline Phosphatase 57 39-117 U/L Lipid Panel (Not yet reviewe d by provider) Interpretation: Performing Lab:[address] [phone] Notes/Report: Triglycerides 305 <150 mg/dL Slight Lipemia. Desirable Triglyceride: less than 150 mg/dL Borderline High Triglyceride 150-199 mg/dL High Triglyceride: 200-499 mg/dL Very High Triglyceride: greater than or equal to 5OO mg/dL Cholesterol 131 <200 mg/dL Desirable Cholesterol: less than 200 mg/dL Borderline High Cholesterol: 200-239 mg/dL High Cholesterol: greater than 239 mg/dL LDL Cholesterol Calculated 40 <100 mg/dL Desirable LDL: less than 100 mg/dL Near Optimal/Above Optimal LDL: 110-129 mg/dL Borderline High LDL: 130-159 mg/dL High LDL: 160-189 mg/dL Very High LDL: greater than or equal to 190 mg/dL HDL Cholesterol 30 >40 mg/dL Desirable HDL: greater than 40 mg/dL Note: This HDL assay may give artificially low results in patients with liver disease. PSA,Total (Free>4and<10) (No t yet reviewed by provider) Interpretation: Performing Lab:[address] [phone] Notes/Report: PSA,Total (Free>4and<10) 1.39 0.00-4.00 ng/mL A Free PSA was not performed: The percentage of Free PSA can be used to enhance the differentiation of prostate cancer from benign prostatic disease in subjects whose PSA levels are between 4.0 and 10.0 ng/mL. For subjects whose PSA levels are below 4.0 or above 10.0 ng/mL, the risk of prostate cancer is determined on the basis of the PSA alone. Therefore the % Free PSA is recommended only for those subjects whose PSA levels are between 4.0 and 10.0 ng/mL. PSA methodology: Stanton Alinity i Chemiluminescent Microparticle Immunoassay (CMIA) Microalbumin, Random (Not ye t reviewed by provider) Interpretation: Performing Lab:[address], [place] [address] Notes/Report: Creatinine Urine 132.92 Microalbumin Urine 13.0 Microalbum/Creatinine Ratio Ur 9.7 <30 ug/mg cr Albumin/Creatinine Ratio Reference Ranges: Normal: < 30 ug/mg creatinine Microalbuminuria: 30 - 300 ug/mg creatinine Clinical Albuminuria: > 300 ug/mg creatinine Hemoglobin A1c (Not yet revi ewed by provider) Interpretation: Performing Lab:[facility], [address] [place] [phone] Notes/Report: Hemoglobin A1c % 7.1 <6.0 % Hemoglobin A1C Reference Range Adults: 4.8 - 6.0 % Non diabetic: < 6.0 % Goal: < 7.0 % Additional Action Suggested: > 8.0 % Note: Hemoglobin A1c results are invalid for patients with abnormal amounts of HbF. Blood transfusions may impact the HbA1c concentration in the patient sample. Estimated Average Glucose 157 eAG = Estimated average glucose which is %A1C expressed as average glucose, using the formula of the [id number]-[id number] Average Glucose study (ADAG), Diabetes Care, Vol.31,#8, Mar. 2007 REASON FOR VISIT yearly fasting labs Encounters Encounter Location Date Provider Diagnosis Eladio Cherry MD [address] [place] [phone] 08/28/2024 Eladio Cherry Type 2 diabetes juan ramon itus without complication E11.9 and Pure hypercholesterolemia E78.00 ASSESSMENTS Encounter Date Diagnosis Assessment Notes Treatment Notes Treatment Clinical Notes 08/28/2024 Type 2 diabetes juan rmaon itus without complication (ICD-10 - E11.9) 08/28/2024 Pure hypercholestero lemia (ICD-10 - E78.00) PLAN OF TREATMENT Pending Test Test Name Order Date Complete Blood Count Auto Diff 5 Comprehensive Pingree. Panel Fast 5 Lipid Panel 08/28/2024 PSA,Total (Free>4and<10) 08/28/2024 Microalbumin, Random 08/28/2024 Hemoglobin A1c 08/28/2024 UA ClnCatch+Micro w/rflx Cult 08/28/2024 Next Appt Details Provider Name:Eladio villatoro, 09/02/2024 01:30:00 PM, [address], [address], [place], [place], [phone],
--- OUTSIDE RECORDS SUMMARY | 2024-08-28 12:39 | XMS_ITS ---
Author Organization Eladio Cherry MD Address [address] [place] [phone] Care Team Providers Care Asset Protection Assistant Name Role Phone Eladio Cherry Primary Care Provider [phone] ALLERGIES No Known Allergies REASON FOR VISIT back pain x 2 weeks, went to Urgent Care 07-04-24 was given Cyclobenzaprine 5mg MEDICATIONS Medication SIG (Take, Route, Frequency, Duration) Notes Start Date End Date Status Atorvastatin Calcium 40 MG TAKE 1 TABLET BY MOUTH EVERY DAY Active Onglyza 5 MG 1 tablet Orally Once a day for 30 day(s) 01/10/2021 Not-Taking guaiFENesin AC 100-10 MG/5ML 10 mL as needed Orally every 4 hrs as needed for 10 days 11/07/2022 Not-Taking Celecoxib 200 MG TAKE 1 CAPSULE BY [facility] EVERY DAY WITH FOOD FOR 30 DAYS for 30 Active Januvia 50 MG TAKE 1 TABLET BY ANTHONY TH EVERY DAY DIRECTED Active Atenolol 25 MG TAKE 1 TABLET BY ANTHONY TH EVERY DAY for 90 Active Tamsulosin HCl 0.4 MG TAKE 1 CAPSULE BY MOUTH EVERYDAY AT BEDTIME for 90 Active metFORMIN HCl 1000 MG TAKE 1 TABLET BY M OUTH TWICE A DAY WITH A MEAL Active Triamterene-HCTZ 37.5-25 MG TAKE 1 TABLET BY MOUTH EVERY DAY for 90 Active Pantoprazole Sodium 40 MG TAKE 1 TABLET BY MOUTH EVERY DAY for 90 Active Proscar 5 MG 1 tablet Orally Once a day for 30 day(s) Active VITAL SIGNS BMI 27.40 kg/m2 07/08/2024 Blood pressure systolic 128 mm Hg 07/08/20 24 Blood pressure diastolic 64 mm Hg 024 Height 70 in 07/08/2024 Weight 191 lbs 07/08/2024 weight is down 7 pounds [facility] 02-07-24 Encounters Encounter Location Date Provider Diagnosis Eladio Cherry MD [address] [place] [address] [place] [phone] 07/08/2024 Eladio Cherry Back muscle spasm M62.830 ASSESSMENTS Encounter Date Diagnosis Assessment Notes Treatment Notes Treatment Clinical Notes 07/08/2024 Back muscle spasm (ICD-10 - M62.830) will try cyclobenziprine and if not better to return PLAN OF TREATMENT Treatment Notes Assessment Notes Back muscle spasm will try cyclobenzip rine and if not better to return Next Appt Details Provider Name:Eladio villatoro, 09/02/2024 01:30:00 PM, [address] [facility], [address], [place], [place], [phone], Progress Notes * Examination Category Sub-Category Detail Notes General Examination GENERAL APPEARANCE: well dev eloped, well nourished HEAD: normocephalic NEUROLOGIC: good strength and dt r's in lower extremities SKIN: good turgor
--- OUTSIDE RECORDS SUMMARY | 2024-08-28 12:39 | XMS_ITS ---
Author Organization Eladio Cherry MD Address [address] [place] [phone] Care Team Providers Care Public Accountant Name Role Phone Eladio Cherry Primary Care Provider [phone] ALLERGIES No Known Allergies REASON FOR VISIT 6 month MEDICATIONS Medication SIG (Take, Route, Frequency, Duration) Notes Start Date End Date Status guaiFENesin AC 100-10 MG/5ML 10 mL as needed Orally every 4 hrs as needed for 10 days 11/07/2022 Not-Taking Onglyza 5 MG 1 tablet Orally Once a day for 30 day(s) 01/10/2021 Not-Taking Tamsulosin HCl 0.4 MG TAKE 1 CAPSULE BY MOUTH EVERYDAY AT BEDTIME for 90 Active Triamterene-HCTZ 37.5-25 MG TAKE 1 TABLET BY MOUTH EVERY DAY for 90 Active Atenolol 25 MG TAKE 1 TABLET BY ANTHONY TH EVERY DAY for 90 Active Januvia 50 MG TAKE 1 TABLET BY ANTHONY TH EVERY DAY DIRECTED Active Pantoprazole Sodium 40 MG TAKE 1 TABLET BY MOUTH EVERY DAY for 90 Active Celecoxib 200 MG TAKE 1 CAPSULE BY MO UTH EVERY DAY WITH FOOD FOR 30 DAYS for 30 Active metFORMIN HCl 1000 MG TAKE 1 TABLET BY M OUTH TWICE A DAY WITH A MEAL Active Atorvastatin Calcium 40 MG TAKE 1 TABLET BY MOUTH EVERY DAY Active Proscar 5 MG 1 tablet Orally Once a day for 30 day(s) Active VITAL SIGNS BMI 28.41 kg/m2 02/07/2024 Blood pressure systolic 126 mm Hg 02/07/20 24 Blood pressure diastolic 64 mm Hg 024 Height 70 in 02/07/2024 Weight 198 lbs 02/07/2024 weight is up 15 pounds since 08-07-23 Encounters Encounter Location Date Provider Diagnosis Eladio Cherry MD [address] [place] [address] Drive [address] [place], [place] [phone] 02/07/2024 Eladio Cherry Type 2 diabetes juan ramon itus without complication E11.9 and Pure hypercholesterolemia E78.00 ASSESSMENTS Encounter Date Diagnosis Assessment Notes Treatment Notes Treatment Clinical Notes 02/07/2024 Type 2 diabetes juan ramon itus without complication (ICD-10 - E11.9) is stable, will continue current regiment . having dtrouble focusing with illness 02/07/2024 Pure hypercholestero lemia (ICD-10 - E78.00) stable, will contnue current regiment PLAN OF TREATMENT Medication Medication Name Sig Start Date Stop Date Notes Januvia 50 MG TAKE 1 TABLET BY ANTHONY TH EVERY DAY DIRECTED metFORMIN HCl 1000 MG TAKE 1 TABLET BY M OUTH TWICE A DAY WITH A MEAL Atorvastatin Calcium 40 MG TAKE 1 TABLET BY MOUTH EVERY DAY Treatment Notes Assessment Notes Type 2 diabetes mellitus without complic ation is stable, will continue current regiment . having dtrouble focusing with illness Pure hypercholesterolemia stable, will c ontnue current regiment Next Appt Details Provider Name:Eladio villatoro, 09/02/2024 01:30:00 PM, [address] [place] [address] Drive, [address], [place], [place], [phone], Progress Notes * Examination Category Sub-Category Detail Notes General Examination GENERAL APPEARANCE: alert, w ell hydrated, in no distress HEAD: normocephalic HEART: regular rate and rhy thm LUNGS: no wheezes, rales, r honchi, good air movement, clear to auscultation bilaterally SKIN: good turgor
--- OUTSIDE RECORDS SUMMARY | 2024-08-28 12:40 | XMS_ITS | Patient Health Record ---
Author Organization [facility] Address [address] [place] [phone] Care Team Providers Care Chisel Mortiser Operator Name Role Phone Jo Ann FIGUEROA, Eladio Primary Care Provider Papi Heredia [phone] ALLERGIES Allergen (clinical drug ingredient) Drug/Non Drug Allergy documented on EMR Reaction Allergy Type Onset Date Status Motrin Unknown Drug Allergy Active REASON FOR REFERRAL No Information MEDICATIONS Medication SIG (Take, Route, Frequency, Duration) Notes Start Date End Date Status Atorvastatin Calcium 40 MG 1 tablet Oral ly Once a day for 30 day(s) Active metFORMIN HCl 1000 MG 1 tablet with a me al Orally Once a day for 30 day(s) Active Atenolol 25 MG 1 tablet Orally Once a day for 30 day(s) Active Triamterene-HCTZ 37.5-25 MG TAKE 1 TABLE T BY MOUTH EVERY DAY Oral for 90 Active Pantoprazole Sodium 40 MG 1 tablet Orall y Once a day for 30 day(s) 11/02/2021 Active Flomax 0.4 MG 1 capsule Orally Onc e a day for 30 day(s) 11/02/2021 Active Januvia 50 MG Oral for 30 Acti ve IMMUNIZATIONS Vaccine Route Administration Date Status Comme nts Influenza Unknown 06/15/2021 Administered SOCIAL HISTORY Tobacco Use: Social History Observation Description Date Details (start date - stop date) Never Smoker NA - NA Sex Assigned At : Social History Observation Description Sex Assigned At Unknown Tobacco Use/Smoking Question Answer Notes Patient is a nonsmoker Alcohol Screen Question Answer Notes Did you have a drink contain ing alcohol in the past year? Yes How often did you have a dri nk containing alcohol in the past year? 2 to 4 times a month (2 points) How many drinks did you have on a typical day when you were drinking in the past year? 1 or 2 drinks (0 point) How often did you have 6 or more drinks on one occasion in the past year? Never (0 point) Points 2 Interpretation Negative PROBLEMS Problem Type ICD Code Onset Dates Problem Status W/U Status Risk SNOMED Code Notes Problem Gastroesophageal reflux disease, unspecified whether esophagitis present (K21.9) Active confirmed 263387280 Problem History of adenomatous polyp of colon (Z86.010) Active confirmed 151187099 Problem Encounter for screening for malignant neoplasm of colon (Z12.11) Active confirmed 418355394 Problem Diverticulosis of colon (K57.30) Active confirmed Diverticulosi s of colon (324698298) Problem Gastric polyp (K31.7) Active confirmed Gastric polyp (78079238) PLAN OF TREATMENT Pending Test Test Name Order Date Pathology 01/11/2022 Future Test Test Name Order Date UPPER GI ENDOSCOPY 11/02/2021 COLONOSCOPY 11/02/2021 Insurance Providers Payer Name Payer Address Payer Phone Subscriber Number Group Number Insured Name Patient Relationship to Insured Coverage Start Date Coverage End Date MEDICARE OF [place] [address] [place] [address] [id number] BALDEV RODNEY Self - patient is the insured [employer] CLAIMS [address] [place] [address] [phone] [id number] BALDEV RODNEY Self - patient is the insured MEDICAL (GENERAL) HISTORY Medical History History ICD Code 2 tubular adenomas removed i n 2000 with an initial screening colonoscopy, negative followup colonoscopy 05/2010 Hypertension NIDDM Hyperlipidemia GERD BPH--he describes a negative prostate bi opsy-- Denies ME,CVA,Lung disease,renal disease Surgical History Surgery Date(Month/Year) Skin lesions-benign
--- OUTSIDE RECORDS SUMMARY | 2024-08-28 12:40 | XMS_ITS | Patient Health Record ---
Author Organization Eladio Cherry MD Address [address] [place], [place] [id number] Care Team Providers Care Hydrologist Name Role Phone Eladio Cherry Primary Care Provider [phone] ALLERGIES No Known Allergies RESULTS Component Value Reference Range Notes Christiano Tesfaye Reviewed date:01/31/2024 12:38:22 PM Interpretation: Performing Lab:[facility], [address] [place] [phone] Notes/Report: Christiano Tesfaye See Note Specimen held untested for 24 hours; Call to request Chemistry testing. Liver Panel Reviewed date:01/31/2024 12:38:57 PM Interpretation: Performing Lab:[facility], [address] [place] [phone] Notes/Report: Bilirubin Total 0.5 0.0-1.0 mg/dL Bilirubin Direct 0.2 0.0-0.5 mg/dL Aspartate Amino Transferase 21 5-37 U/L Alanine Aminotransferase 30 0-40 U/L Total Protein 7.4 6.5-8.0 g/dL Albumin Level 4.4 3.5-5.0 g/dL Alkaline Phosphatase 63 39-117 U/L Glucose Fasting Reviewed date:01/31/2024 12:39:08 PM Interpretation: Performing Lab:[address] [phone] Notes/Report: Glucose Fasting 151 60-99 mg/dL A fasting glucose of 126 mg/dl or greater on more than one occasion is considered diagnostic of diabetes. Lipid Panel with Reflex Reviewed date:01/31/2024 12:45:56 PM Interpretation: Performing Lab:[facility], [address] [place] [phone] Notes/Report: Triglycerides 280 <150 mg/dL Desirable Triglyceride: less than 150 mg/dL Borderline High Triglyceride 150-199 mg/dL High Triglyceride: 200-499 mg/dL Very High Triglyceride: greater than or equal to 5OO mg/dL Cholesterol 134 <200 mg/dL Desirable Cholesterol: less than 200 mg/dL Borderline High Cholesterol: 200-239 mg/dL High Cholesterol: greater than 239 mg/dL LDL Cholesterol Calculated 49 <100 mg/dL Desirable LDL: less than 100 mg/dL Near Optimal/Above Optimal LDL: 110-129 mg/dL Borderline High LDL: 130-159 mg/dL High LDL: 160-189 mg/dL Very High LDL: greater than or equal to 190 mg/dL HDL Cholesterol 29 >40 mg/dL Desirable HDL: greater than 40 mg/dL Note: This HDL assay may give artificially low results in patients with liver disease. Hemoglobin A1c Reviewed date:01/31/2024 12:40:08 PM Interpretation: Performing Lab:[address] [phone] Notes/Report: Hemoglobin A1c % 7.5 <6.0 % Hemoglobin A1C Reference Range Adults: 4.8 - 6.0 % Non diabetic: < 6.0 % Goal: < 7.0 % Additional Action Suggested: > 8.0 % Note: Hemoglobin A1c results are invalid for patients with abnormal amounts of HbF. Blood transfusions may impact the HbA1c concentration in the patient sample. Estimated Average Glucose 169 eAG = Estimated average glucose which is %A1C expressed as average glucose, using the formula of the [id number]-[id number] Average Glucose study (ADAG), Diabetes Care, Vol.31,#8, Mar. 2007 XR lumbar spine 2-3V Reviewed date:07/05/2024 05:18:43 PM Interpretation: Performing Lab: Notes/Report: [facility] [place] [address] XRay Report Signed Patient: Obey Ribera MR#: [id number] : 1950 Acct:[id number] Age/Sex: 74 / M ADM Date: 07/04/24 Loc: HO.HMGCX Attending Dr: Anastasia SILVA Ordering Physician: Anastasia Collado Date of Service: 07/04/24 Procedure(s): XR lumbar spine 2-3V Accession Number(s): [id number] cc: Eladio Cherry MD; Anastasia Collado EXAMINATION: XR LUMBOSACRAL SPINE CLINICAL INFORMATION: Low back pain, unspecified COMPARISON: None available. TECHNIQUE: AP and lateral views of the lumbar spine and lateral view of the lumbosacral junction. FINDINGS: Grade 1 anterolisthesis of L4 on L5. Moderate degenerative disc disease at L5-S1 with loss of intervertebral disc space and vacuum disc phenomenon. Otherwise, intervertebral disc spaces are relatively well-maintained. Multilevel lower lumbar spine facet arthropathy. Vertebral body heights are maintained. Imaged portions of the sacroiliac joints are normal. Paraspinal soft tissues are normal. Bilateral pelvic phleboliths. Aortic calcifications noted. XR/XR lumbar spine 2-3V IMPRESSION: 1. No acute fracture or joint subluxation of the lumbar spine. 2. Grade 1 anterolisthesis of L4 on L5. 3. Moderate degenerative disc disease at L5-S1. Electronically signed by: Marah Sorenson DO 07/04/2024 06:11 PM [facility] Dictated By: Marah Sorenson Signed By: <Electronically signed by Marah Sorenson in [place]> 07/04/24 1811 DD/ 1537 TD/TT: 07/04/24 1543 [employer] Builder Apprentice: Complete Blood Count Auto Di ff (Not yet reviewed by provider) Interpretation: Performing Lab:[facility], [address] [place] [address] Notes/Report: White Blood Count 7.1 4.8-10.8 X10*3/uL [...] NRBC Abs Auto 0.000 0.0-0.012 X10*3/uL Comprehensive [place]. Panel Fa st (Not yet reviewed by provider) Interpretation: Performing Lab:[facility], [address] [place] [address] Notes/Report: Sodium 140 135-145 mmol/L Potassium 4.0 [...] yet reviewe d by provider) Interpretation: Performing Lab:[address] [phone] Notes/Report: Triglycerides 305 <150 mg/dL Slight Lipemia. [...] t yet reviewed by provider) Interpretation: Performing Lab:[address] [address] Notes/Report: PSA,Total (Free>4and<10) 1.39 0.00-4.00 ng/mL A [...] ye t reviewed by provider) Interpretation: Performing Lab:[address] [address] Notes/Report: Creatinine Urine 132.92 Microalbumin Urine 13.0 Microalbum/Creatinine Ratio Ur 9.7 <30 ug/mg cr Albumin/Creatinine Ratio Reference Ranges: Normal: < 30 ug/mg creatinine Microalbuminuria: 30 - 300 ug/mg creatinine Clinical Albuminuria: > 300 ug/mg creatinine Hemoglobin A1c (Not yet revi ewed by provider) Interpretation: Performing Lab:[address] [address] Notes/Report: Hemoglobin A1c % 7.1 <6.0 % [...] average glucose, using the formula of the J4E-Ojuqvrg Average Glucose study (ADAG), Diabetes Care, Vol.31,#8, Mar. 2007 REASON FOR REFERRAL No Information MEDICATIONS Medication SIG (Take, Route, Frequency, Duration) Notes Start Date End Date Status Atenolol 25 MG TAKE 1 TABLET BY [...] Once a day for 30 day(s) Active Onglyza 5 MG 1 tablet Orally Once a day for 30 day(s) 01/10/2021 Not-Taking Triamterene-HCTZ 37.5-25 MG TAKE 1 TABLET BY MOUTH EVERY DAY for 90 Active guaiFENesin AC 100-10 MG/5ML 10 mL as needed Orally every 4 hrs as needed for 10 days 11/07/2022 Not-Taking Celecoxib 200 MG TAKE 1 CAPSULE BY MO UTH EVERY DAY WITH FOOD FOR 30 DAYS for 30 Active Pantoprazole Sodium 40 MG TAKE 1 TABLET BY MOUTH EVERY DAY for 90 Active Januvia 50 MG TAKE 1 TABLET BY ANTHONY EVERY DAY DIRECTED Active IMMUNIZATIONS Vaccine Route Administration Date Status Comme nts Flu Vaccine IM Intramuscular 04/20/2011 Administered Flu Vaccine Unknown 05/29/2012 Administered Flu Vaccine Unknown 05/21/2013 Administered flu vac at [facility] Flu Vaccine IM Intramuscular 06/29/2014 Administered [facility] Shingles Unknown 02/04/2015 Administered Given at [facility] zInfluenza Unknown 04/19/2015 Administered pt had injec tion at [facility] in [place]. TDaP IM Intramuscular 06/14/2015 Administered zFluzone Quadrivalent Unknown 06/29/2015 Administered given at work Flu Vaccine IM Intramuscular 04/13/2016 Administered pt helms d the vaccine at [facility] zFluzone Quadrivalent Unknown 05/02/2017 Administered [facility] PPSV23 (Pnemovax) IM Intramuscular 05/28/2017 Administered pt was given the vaccine at work, at [facility]. Shingrix IM Intramuscular 05/08/2018 Administered Pt was given the vaccine at [facility]. Fluarix Quadrivalent Unknown 05/08/2018 Administered [facility] Shingrix IM Intramuscular 12/19/2018 Administered pt had the vaccine at [facility]. Prevnar 13 Unknown 12/19/2018 Administered pt was given the vaccine at [facility], in [place] Influenza High Dose Unknown 05/21/2019 [facility] Influenza High Dose IM Intramuscular 04/19/2020 Administer ed [facility] Covid Vaccine Unknown 10/23/2020 Administered Moderna Covid Vaccine Unknown 11/20/2020 Administered Moderna [facility] Influenza High Dose Unknown 05/23/2021 Administered [facility] SARS-COV-2 Moderna Unknown 07/04/2021 Administered [facility] SARS-COV-2 Moderna Unknown 07/04/2021 Administered SARS-COV-2 Moderna Unknown 04/03/2022 Administered [facility] Influenza High Dose Unknown 06/28/2022 Administered [facility] SARS-COV-2 Moderna Unknown 10/27/2022 Administered [facility] Influenza High Dose Unknown 05/26/2023 Administered SARS-COV-2 Moderna Unknown 06/18/2023 Administered PPSV23 (Pnemovax) Unknown 09/17/2014 Refused SOCIAL HISTORY Tobacco Use: Social History Observation Description Date Details (start date - stop date) Former Smoker NA - NA Sex Assigned At : Social History Observation Description Sex Assigned At Unknown Tobacco Use/Smoking Question Answer Notes Patient is a former smoker How long has it been since y ou last smoked? 1-5 years Additional Findings: Tobacco Non-User Fo rmer smoker, currently using no form of tobacco Alcohol Screen Question Answer Notes Did you have a drink contain ing alcohol in the past year? Yes How often did you have a dri nk containing alcohol in the past year? Monthly or less (1 point) How many drinks did you have on a typical day when you were drinking in the past year? 1 or 2 drinks (0 point) How often did you have 6 or more drinks on one occasion in the past year? 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 47683181 Problem Tubular adenoma of colon (D12.6) Active confirmed 995209349 Problem Type 2 diabetes mellitus without complication (E11.9) Active confirmed 97807004 Problem Low HDL (under 40) (E78.6) Active confirmed 250903868 Problem Type 2 diabetes, controlled, with neuropathy (E11.40) Active confirmed 88048715 Problem TOLENTINO (nonalcoholic steatohepatitis) (K75.81) Active confirmed 934839853 Problem Pure hypercholesterolemia (E78.00) Active confirmed 626827368 VITAL SIGNS Blood pressure diastolic 64 mm Hg 07/08/2024 mike ght is down 7 pounds since 02-07-24 Height 70 in 07/08/2024 weight is down 7 pounds since 02-07-24 Blood pressure systolic 128 mm Hg 07/08/2024 weig ht is down 7 pounds since 02-07-24 Weight 191 lbs 07/08/2024 weight is down 7 pounds since 02-07-24 BMI 27.40 kg/m2 07/08/2024 weight is down 7 pounds since 02-07-24 Encounters Encounter Location Date Provider Diagnosis Eladio Cherry MD [address] [place] [address] [id number] 01/31/2024 Eladio Cherry Type 2 diabetes juan ramon itus without complication E11.9 and Pure hypercholesterolemia E78.00 Eladio Cherry MD [address] [place] [address] [id number] 08/28/2024 Eladio Campbeller Type 2 diabetes juan ramon itus without complication E11.9 and Pure hypercholesterolemia E78.00 Eladio Cherry MD [address] [place] [address] Drive [address] [place] [address] [id number] 02/07/2024 Eladio Campbeller Type 2 diabetes juan ramon itus without complication E11.9 and Pure hypercholesterolemia E78.00 Eladio Cherry MD [address] [place] [address] Drive [address] [place] [address] [id number] 07/08/2024 Eladio Cherry Back muscle spasm M6 2.830 ASSESSMENTS Encounter Date Diagnosis Assessment Notes Treatment Notes Treatment Clinical Notes 01/31/2024 Type 2 diabetes juan ramon itus without complication (ICD-10 - E11.9) 01/31/2024 Pure hypercholestero lemia (ICD-10 - E78.00) 08/28/2024 Type 2 diabetes juan ramon itus without complication (ICD-10 - E11.9) 02/07/2024 Type 2 diabetes juan ramon itus without complication (ICD-10 - E11.9) is stable, will continue current regiment . having dtrouble focusing with illness 02/07/2024 Pure hypercholestero lemia (ICD-10 - E78.00) stable, will contnue current regiment 07/08/2024 Back muscle spasm (I CD-10 - M62.830) will try cyclobenziprine and if not better to return 08/28/2024 Pure hypercholestero lemia (ICD-10 - E78.00) PLAN OF TREATMENT Pending Test Test Name Order Date Electrocardiogram (EKG) 04/06/2016 Electrocardiogram (EKG) 04/19/2017 Stress Test 11/25/2021 Complete Blood Count Auto Diff 5 Comprehensive [place]. Panel Fast 5 Lipid Panel 08/28/2024 PSA,Total (Free>4and<10) 08/28/2024 Microalbumin, Random 08/28/2024 Hemoglobin A1c 08/28/2024 UA ClnCatch+Micro w/rflx Cult 08/28/2024 Future Test Test Name Order Date XR CHEST 2 VIEW PA & LAT 08/09/2020 XR CHEST 2 VIEW PA & LAT 08/30/2020 Next Appt Details Provider Name:Eladio Colvin ier, 09/02/2024 01:30:00 PM, [address] [place] [address] Drive, [address], [place], [place], [id number], Insurance Providers Payer Name Payer Address Payer Phone Subscriber Number Group Number Insured Name Patient Relationship to Insured Coverage Start Date Coverage End Date MEDICARE NHIC [address] [place] [address] [id number] Obey Ribera Self - patient is the insured 8 [employer] [place] [address] [place] [address] [id number] Obey Ribera Self - patient is the insured MEDICAL (GENERAL) HISTORY Medical History History ICD Code colonoscopy done 06/03/15 w/Dr. Mays - repeat 5 yrs 03/19/14 - will receive pneumo at pharmac y had hematuria work up Peptic ulcer K27.9 Peptic ulcer colonoscopy and endoscopy 2021 repeat in 5 years
[2024-08-28 13:08] LABS: Bacteria Urine None Seen (None Seen); Hyaline Casts Urine 0-2 /LPF (0-2); RBC Urine 0-2 /HPF (0-2); Squamous Epithelial Cell Urine 0-2 /HPF (0-2); WBC Urine 0-5 /HPF (0-5)
== END 2024-08-28 11:30 | disposition home or self-care (01) ==
LOC: HO.LNP 11:29
PROVIDERS: Visit Provider Internal Medicine
DX: E11.9 Type 2 diabetes mellitus without complications (principal); E78.00 Pure hypercholesterolemia, unspecified; Z12.5 Encounter for screening for malignant neoplasm of prostate
CPT/HCPCS: 80053; 80061; 81001; 82043; 82570; 83036; 84153; 85025

== ENCOUNTER 2025-03-02 10:44 | Outpatient (REF) | payer MEDICARE, SELFPAY ==
[2025-03-02 11:23] LABS: Hemoglobin A1C 222.7043 umol/L; Total Hemoglobin (HGBA1C) 3817.7081 umol/L
--- OUTSIDE RECORDS SUMMARY | 2025-03-02 11:39 | XMS_ITS | Patient Health Record ---
Author Organization Eladio Cherry MD Address [address] [place] [phone] Care Team Providers Care Ceramic Tile Mechanic Name Role Phone Eladio Cherry Primary Care Provider Allergies No Known Allergies Results Component Value Reference Range Notes Complete Blood Count Auto Di ff Reviewed date:08/28/2024 01:42:10 PM Interpretation: Performing Lab:[facility], [address] [place] [phone] Notes/Report: White Blood Count 7.1 4.8-10.8 X10*3/uL [...] 0.0-0.2 /100WBC Neutrophils Absolute Auto 3.7 2.0-8.3 x10*3/uL Imm Gran Abs Auto 0.07 0.00-0.03 X10*3/uL Lymphocytes Absolute Auto 2.5 1.2-4.9 X10*3/uL Monocytes Absolute Auto 0.6 0.1-1.2 X10*3/uL Eosinophils Absolute Auto 0.3 0.0-0.4 X10*3/uL Basophils Absolute Auto 0.1 0.0-0.2 X10*3/uL NRBC Abs Auto 0.000 0.0-0.012 X10*3/uL Comprehensive [place]. Panel Fa st Reviewed date:08/28/2024 03:14:33 PM Interpretation: Performing Lab:[facility], [address] [place] [phone] Notes/Report: Sodium 140 135-145 mmol/L Potassium 4.0 [...] Alkaline Phosphatase 57 39-117 U/L Lipid Panel Reviewed date:08/28/2024 12:51:42 PM Interpretation: Performing Lab:[address] [phone] Notes/Report: Triglycerides 305 <150 mg/dL Slight Lipemia. [...] in patients with liver disease. PSA,Total (Free>4and<10) Reviewed date:08/28/2024 01:55:50 PM Interpretation: Performing Lab:[facility], [address] [place] [phone] Notes/Report: PSA,Total (Free>4and<10) 1.39 0.00-4.00 ng/mL A [...] i Chemiluminescent Microparticle Immunoassay (CMIA) Microalbumin, Random Reviewed date:08/28/2024 01:56:14 PM Interpretation: Performing Lab:[address] [phone] Notes/Report: Creatinine Urine 132.92 Microalbumin Urine 13.0 Microalbum/Creatinine Ratio Ur 9.7 <30 ug/mg cr Albumin/Creatinine Ratio Reference Ranges: Normal: < 30 ug/mg creatinine Microalbuminuria: 30 - 300 ug/mg creatinine Clinical Albuminuria: > 300 ug/mg creatinine Hemoglobin A1c Reviewed date:08/28/2024 01:53:31 PM Interpretation: Performing Lab:[facility], [address] [place] [phone] Notes/Report: Hemoglobin A1c % 7.1 <6.0 % [...] average glucose, using the formula of the E7X-Qzwvpla Average Glucose study (ADAG), Diabetes Care, Vol.31,#8, Mar. 2007 UA ClnCatch+Micro w/rflx Cul t Reviewed date:08/28/2024 03:32:28 PM Interpretation: Performing Lab:[facility], [address] [place] [phone] Notes/Report: Urine, Clean Catch Color Urine Yellow Appearance Urine Clear PH 6.0 5.0-9.0 Glucose Urine UA Negative Negative mg/dL Urine Blood Negative Negative Specific [place] - Urine 1.025 1.005-1.025 Urine Protein Negative Neg-Trace mg/dL Urine Ketones Negative Negative mg/dL Nitrite Urine Negative Negative Leukocyte Esterase Urine Negative Negative RBC Urine 0-2 0-2 /HPF WBC Urine 0-5 0-5 /HPF Squamous Epithelial Cell Urine 0-2 0-2 /HPF Bacteria Urine None Seen None Seen Hyaline Casts Urine 0-2 0-2 /LPF Hemoglobin A1c (Not yet revi ewed by provider) Interpretation: Performing Lab:[facility], [address] [place] [phone] Notes/Report: Hemoglobin A1c % 7.5 <6.0 % [...] average glucose, using the formula of the L4X-Xzabzia Average Glucose study (ADAG), Diabetes Care, Vol.31,#8, Mar. 2007 XR lumbar spine 2-3V Reviewed date:07/05/2024 05:18:43 PM Interpretation: Performing Lab: Notes/Report: [facility] [place] [address] XRay Report Signed Patient: Obey Ribera MR#: [id number] : 1950 Acct:[id number] Age/Sex: 74 / M ADM Date: 07/04/24 Loc: HO.HMGCX Attending Dr: Anastasia SILVA Ordering Physician: Anastasia Collado Date of Service: 07/04/24 Procedure(s): XR lumbar spine 2-3V Accession Number(s): [id number] cc: Eladio Cherry MD; Anastasia Collado EXAMINATION: [...] by: Marah Sorenson DO 07/04/2024 06:11 PM EST RP Dictated By: Marah Sorenson Signed By: <Electronically signed by Marah Sorenson in OV> 07/04/241810 DD/ 1537 TD/TT: 07/04/24 1543 Guidance Consultant: [facility] [address] [place] [address] [place] [address] XRay Report Signed Patient: Jordan Ribera MR#: [id number] : 1950 Acct:[id number] Age/Sex: 74 / M ADM Date: 07/04/24 Loc: .HMGCX Attending Dr: Anastasia SILVA Ordering Physician: Anastasia Collado Date of Service: 07/04/24 Procedure(s): XR lum bar spine 2-3V Accession Number(s): [id number] cc: Eladio Cherry MD; Anastasia Collado EXAMINATION: XR LUMBOSACRAL SPINE CLINICAL INFORMATION: Low back pain, unspecified COMPARISON: None available. TECHNIQUE: AP and lateral views of the lumbar spine and lateral view of the lumbosacral junction. FINDINGS: Grade 1 anterolisthe sis of L4 on L5. Moderate degenerative disc disease at L5-S1 with loss o f intervertebral disc space and vacuum disc phenomenon. Otherwis e, intervertebral disc spaces are relatively well-maintained. Multilevel lower lumbar spine facet arthropathy. Vertebral body heigh ts are maintained. Imaged portions of the sacroiliac joints ar e normal. Paraspinal soft tissues are normal. Bilateral pelvic phleboliths. Aortic calcifications noted. XR/XR lumbar spine 2-3V IMPRESSION: 1. No acute fracture or joint subluxation of the lumbar spine. 2. Grade 1 anterolisthesis of L4 on L5. 3. Moderate degenerative disc disease at L5-S1. Electronically zaira d by: Marah Sorenson DO 07/04/2024 06:11 PM EST RP Dictated By: Marah Sorenson Signed By: <Electronically signed by Marah Sorenson in OV> 07/04/241810 DD/ 1537 TD/TT: 07/04/24 1543 Guidance Consultant: Christiano Tesfaye (Not yet reviewed by provider) Interpretation: Performing Lab:[facility], [address] [place] [address], [place] [phone] Notes/Report: Christiano Tesfaye See Note Specimen held untested for 24 hours; Call to request Chemistry testing. Reason For Referral No Information Medications Medication SIG (Take, Route, Frequency, Duration) Notes Start Date End Date Status Atenolol 25 MG TAKE 1 TABLET BY MOUTH EVERY DAY for 90 Active Triamterene-HCTZ 37.5-25 MG TAKE 1 TABLE T BY MOUTH EVERY DAY for 90 Active Tamsulosin HCl 0.4 MG TAKE 1 CAPSULE BY MOUTH EVERYDAY AT BEDTIME for 90 Active guaiFENesin AC 100-10 MG/5ML 10 mL as needed Orally every 4 hrs as needed for 10 days 11/07/2022 Not-Taking Onglyza 5 MG 1 tablet Orally Once a day for 30 day(s) 01/10/2021 Not-Taking traMADol HCl 50 MG 1 tablet as needed Orally every 8 hours as needed for 10 days 03/02/2025 Active metFORMIN HCl 1000 MG TAKE 1 TABLET BY MOUTH TWICE A DAY WITH A MEAL for 90 Active Januvia 50 MG TAKE 1 TABLET BY MOUTH EVERY DAY DIRECTED for 90 Active Pantoprazole Sodium 40 MG TAKE 1 TABLET BY MOUTH EVERY DAY for 90 Active Cyclobenzaprine HCl 5 MG 1 tablet at bed time as needed Orally twice for 10 days 03/02/2025 Active Atorvastatin Calcium 40 MG TAKE 1 TABLET BY MOUTH EVERY DAY for 90 Active Proscar 5 MG 1 tablet Orally Once a day for 30 day(s) Active Celecoxib 200 MG TAKE 1 CAPSULE BY MOUTH EVERY DAY WITH FOOD FOR 30 DAYS for 30 Active Immunizations Vaccine Route Administration Date Status Comme nts Flu Vaccine IM Intramuscular 04/20/2011 Administered Flu Vaccine Unknown 05/29/2012 Administered Flu Vaccine Unknown 05/21/2013 Administered flu vac at [facility] Flu Vaccine IM Intramuscular 06/29/2014 Administered [facility] Shingles Unknown 02/04/2015 Administered Given at [facility] on [facility] zInfluenza Unknown 04/19/2015 Administered pt had injec tion at [facility] in [place]. TDaP IM Intramuscular 06/14/2015 Administered zFluzone Quadrivalent Unknown 06/29/2015 Administered given at work Flu Vaccine IM Intramuscular 04/13/2016 Administered pt helms d the vaccine at [facility] zFluzone Quadrivalent Unknown 05/02/2017 Administered [facility] PPSV23 (Pnemovax) IM Intramuscular 05/28/2017 Administered pt was given the vaccine at work, at [facility]. Shingrix IM Intramuscular 05/08/2018 Administered Pt was given the vaccine at [facility] on [facility]. Fluarix Quadrivalent Unknown 05/08/2018 Administered [facility] Shingrix IM Intramuscular 12/19/2018 Administered pt had the vaccine at [facility]. 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 Problem 86277592 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 Problem 503123299 Tubular adenoma of colon (D12.6) Active confirmed Problem 10258155 Type 2 diabetes mellitus without complication (E11.9) Active confirmed Problem 654314423 Low HDL (under 4 0) (E78.6) Active confirmed Problem 36563745 Type 2 diabetes, controlled, with neuropathy (E11.40) Active confirmed Problem 315604929 TOLENTINO (nonalcohol ic steatohepatitis) (K75.81) Active confirmed Problem 986770118 Pure hypercholesterolemia (E78.00) Active confirmed Vital Signs Blood pressure diastolic 64 mm Hg 03/02/2025 mike ght is down 5 pounds since 09-02-24 Height 70 in 03/02/2025 weight is down 5 pounds since 09-02-24 Blood pressure systolic 122 mm Hg 03/02/2025 weig ht is down 5 pounds since 09-02-24 Weight 188 lbs 03/02/2025 weight is down 5 pounds since 09-02-24 BMI 26.97 kg/m2 03/02/2025 weight is down 5 pounds since 09-02-24 Encounters Encounter Location Date Provider Diagnosis Eladio Cherry MD [address] [place] [id number] 07/08/2024 Eladio Bombardier Back muscle spasm M6 2.830 Eladio Cherry MD [address] [place] [id number] 08/28/2024 Eladio Bombardier Type 2 diabetes juan ramon itus without complication E11.9 and Pure hypercholesterolemia E78.00 Eladio Cherry MD [address] [place] [id number] 03/02/2025 Eladio Bombardier Type 2 diabetes juan ramon itus without complication E11.9 and Pure hypercholesterolemia E78.00 Eladio Cherry MD [address] [place] [id number] 03/02/2025 Eladio Bombardier Back spasm M62.830 Eladio Cherry MD [address] [place] [id number] 09/02/2024 Eladio Cherry Type 2 diabetes juan ramon itus without complication E11.9 ; Pure hypercholesterolemia E78.00 ; Goldsmith esophagus K22.70 ; Colon cancer screening Z12.11 and Depression screening Z13.31 Assessments Encounter Date Diagnosis (ICD Code) Assessment Notes Treatment Notes Treatment Clinical Notes Section Notes 07/08/2024 Back muscle spasm (ICD-10 - M62.830) will try cyclobenziprine and if not better to return 08/28/2024 Type 2 diabetes mellitus without complication (ICD-10 - E11.9) 08/28/2024 Pure hypercholesterolemia (ICD-10 - E78.00) 03/02/2025 Type 2 diabetes mellitus without complication (ICD-10 - E11.9) 03/02/2025 Back spasm (ICD-10 - M62.830) patient verbalized understanding of medication and directions for use 09/02/2024 Type 2 diabetes mellitus without complication (ICD-10 - E11.9) doing well with good a1c, will continue current regiment 09/02/2024 Pure hypercholesterolemia (ICD-10 - E78.00) well controlled on meds , will continue current regiment 03/02/2025 Pure hypercholesterolemia (ICD-10 - E78.00) 09/02/2024 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) stable, will continue current regiment 09/02/2024 Colon cancer screeni ng (ICD-10 - Z12.11) guaiac negative 09/02/2024 Depression screening (ICD-10 - Z13.31) negative screen Plan Of Treatment Pending Test Test Name Order Date Electrocardiogram (EKG) 04/06/2016 Electrocardiogram (EKG) 04/19/2017 Stress Test 11/25/2021 Liver Panel 03/02/2025 Glucose Fasting 03/02/2025 Lipid Panel with Reflex 03/02/2025 Hold Gold 03/02/2025 Hemoglobin A1c 03/02/2025 Future Test Test Name Order Date XR CHEST 2 VIEW PA & LAT 08/09/2020 XR CHEST 2 VIEW PA & LAT 08/30/2020 Next Appt Details Provider Name:Eladio villatoro, 03/09/2025 02:00:00 PM, [address] [place] [address], [address], [place], [place], [phone], Provider Name:Eladio villatoro, 08/31/2025 07:45:00 AM, [address], [address], [place], [place], [phone], Provider Name:Eladio Colvin ier, 09/07/2025 01:00:00 PM, [address], [address], [place], [place], [phone], Insurance Providers Payer Name Payer Address Payer Phone Subscriber Number Group Number Insured Name Patient Relationship to Insured Coverage Start Date Coverage End Date MEDICARE NH[address] [place] [address] [id number] Obey Ribera Self - patient is the insured 8 MEDEX BC OF [facility] [address] [place] [address] [id number] Obey Ribera Self - patient is the insured Medical (General) History Medical History History ICD Code colonoscopy done 06/03/15 w/Dr. Mays - repeat 5 yrs 03/19/14 - will receive pneumo at pharmac y had hematuria work up Peptic ulcer K27.9 Peptic ulcer colonoscopy and endoscopy 2021 repeat in 5 years
--- OUTSIDE RECORDS SUMMARY | 2025-03-02 11:39 | XMS_ITS | Patient Health Record ---
Author Organization [facility] Address [address] [place] [phone] Care Team Providers Care Psychiatric Attendant Name Role Phone Jo Ann FIGUEROA, Eladio Primary Care Provider Papi Heredia [phone] Allergies Allergen (clinical drug ingredient) Drug/Non Drug Allergy documented on EMR Reaction Allergy Type Onset Date Status Motrin Unknown Drug Allergy Active Reason For Referral No Information Medications Medication [...] 50 MG Oral for 30 Acti ve Immunizations Vaccine Route Administration Date Status Comme nts Influenza Unknown 06/15/2021 Administered Social History Tobacco Use: Social History Observation Description Date Details (start date - stop date) Never Smoker NA - NA Tobacco Use/Smoking Question [...] Never (0 point) Points 2 Interpretation Negative Section Notes: Nonsmoker; no significant al cohol Problems Problem Type SNOMED Code ICD Code Onset Dates Problem Status W/U Status Risk Notes Problem 439719562 Encounter for screening for malignant neoplasm of colon (Z12.11) Active confirmed Problem 866009539 History of adenomatous polyp of colon (Z86.010) Active confirmed Problem Gastric polyp (96781155) Gastric polyp (K31.7) Active confirmed Problem Diverticulosis of colon (992556593) Diverticulosis of colon (K57.30) Active confirmed Problem 963544114 Gastroesophageal reflux disease, unspecified whether esophagitis present (K21.9) Active confirmed Plan Of Treatment Pending Test Test Name Order Date Pathology 01/11/2022 Future Test Test Name Order Date UPPER GI ENDOSCOPY 11/02/2021 COLONOSCOPY 11/02/2021 Insurance Providers Payer Name Payer Address Payer Phone Subscriber Number Group Number Insured Name Patient Relationship to Insured Coverage Start Date Coverage End Date MEDICARE OF [place] [address] [place] [address] [id number] BALDEV RODNEY Self - patient is the insured MEDEX ATTN CLAIMS [address] [place] [address] [id number] BALDEV RODNEY Self - patient is the insured Medical (General) History Medical History History ICD Code 2 tubular adenomas removed i n 2000 with an initial screening colonoscopy, negative followup colonoscopy 05/2010 Hypertension NIDDM Hyperlipidemia GERD BPH--he describes a negative prostate bi opsy-- Denies [place],CVA,Lung disease,renal disease Surgical History Surgery Date(Month/Year) Skin lesions-benign
[2025-03-02 13:34] LABS: Alanine Aminotransferase 22 U/L (0-40); Albumin Level 4.4 g/dL (3.5-5.0); Alkaline Phosphatase 52 U/L (39-117); Aspartate Amino Transferase 27 U/L (5-37); Cholesterol 141 mg/dL (<200); HDL Cholesterol 30 mg/dL (>40); Total Protein 7.0 g/dL (6.5-8.0); Triglycerides 213 mg/dL (<150)
[2025-03-02 13:42] LABS: Reflex LDLD? No
== END 2025-03-02 10:45 | disposition home or self-care (01) ==
LOC: HO.LNP 10:44
PROVIDERS: Visit Provider Internal Medicine
DX: E11.9 Type 2 diabetes mellitus without complications (principal); E78.00 Pure hypercholesterolemia, unspecified
CPT/HCPCS: 80061; 80076; 82947; 83036